=== PATIENT | male | born 1970 | race Caucasian/White ===

== ENCOUNTER 2023-03-06 18:29 | Inpatient (IN) | payer OTHER ==
[2023-03-06 19:55] VITALS: BMI 24.1
[2023-03-06] MEDS ORDERED: IBUPROFEN 600 MG TABLET (FP) PO PRN (23:57)
[2023-03-06] MEDS ORDERED: NALOXONE HCL 0.4 MG/ML VIAL IM PRN (23:57)
[2023-03-06] MEDS ORDERED: BISMUTH SUBSALICYLATE 524 MG/30 ML PO PRN (23:57)
[2023-03-06] MEDS ORDERED: POLYETHYLENE GLYCOL (HEALTHYLAX) 3350 17 GM PACKET PO PRN (23:57)
[2023-03-06] MEDS ORDERED: ACETAMINOPHEN 325 MG TABLET (FP) PO PRN (23:57)
[2023-03-06] MEDS ORDERED: LOPERAMIDE HCL 2 MG CAPSULE PO PRN (23:57)
[2023-03-06] MEDS ORDERED: MELATONIN 5 MG TABLETS PO PRN (23:57)
[2023-03-06] MEDS ORDERED: MAG HYDROX/AL HYDROX/SIMETH 30 ML UNIT-DOSE CUP PO PRN (23:57)
[2023-03-06] MEDS ORDERED: BENZOCAINE/MENTHOL (CHLORASEPTIC ) LOZENGE MM PRN (23:57)
[2023-03-06] MEDS ORDERED: P-EPHED 60MG/TRIPROLIDI 2.5MG TABLET PO PRN (23:57)
[2023-03-06] MEDS ORDERED: NALOXONE HCL (KLOXXADO) 8 MG SPRAY NS PRN (23:57)
[2023-03-06] MEDS ORDERED: IBUPROFEN 400 MG TABLET (FP) PO PRN (23:57)
[2023-03-06] MEDS ORDERED: hydrOXYzine PAMOATE 25 MG CAPSULE (FP) PO PRN (23:57)
[2023-03-06] MEDS ORDERED: ONDANSETRON *ODT* 4 MG TABLET SL PRN (23:57)
[2023-03-06] MEDS ORDERED: MAGNESIUM HYDROX 2400MG/30ML ORAL SUSPENSION 30 ML CUP PO PRN (23:57)
[2023-03-06] MEDS ORDERED: BENZONATATE 200 MG CAPSULE PO PRN (23:57)
[2023-03-06] MEDS ORDERED: NICOTINE POLACRILEX 2 MG GUM BUC PRN (23:57)
[2023-03-06] MEDS ORDERED: DICYCLOMINE HCL 10 MG CAPSULE PO PRN (23:57)
[2023-03-07] MEDS ORDERED: ALBUTEROL SO4 0.083% IH SOL 2.5 MG/3 ML VIAL.NEB. NEB PRN
[2023-03-07] MEDS ORDERED: diazePAM 5 MG TABLET PO PRN (00:02)
[2023-03-07] MEDS ORDERED: methaDONE HCL 10 MG TABLET PO SCH (09:30)
[2023-03-07] MEDS: guaiFENesin 600 MG TABLET.ER (FP) PO SCH ×2 (09:36→22:20)
[2023-03-07] MEDS: PRENATAL VITAMINS W/ FOLIC ACID TABLET (FP) PO SCH (09:38)
[2023-03-07] MEDS: APIXABAN 5 MG TABLET PO SCH ×2 (11:19→22:20)
[2023-03-07] MEDS: BUDESONIDE/FORMETEROL FUMARATE 160/4.5 mcg INHALER IH SCH ×2 (11:19→22:20)
[2023-03-07] MEDS: TIOTROPIUM BROMIDE 2.5 MCG (SPIRIVA) RESPIMAT INHALER IH SCH (11:19)
[2023-03-07] MEDS: diazePAM 5 MG TABLET PO SCH ×3 (11:20→22:20)
[2023-03-07] MEDS ORDERED: ALBUTEROL SO4 HFA INHALER IH ONE (11:27)
[2023-03-07] MEDS: ALBUTEROL SO4 HFA INHALER IH PRN (11:47)
[2023-03-07 11:58] LABS: POTASSIUM 5.1 mmol/L (3.5-5.1)
[2023-03-07 12:01] LABS: HEMATOCRIT 38.2 % (35.4-49); HEMOGLOBIN 12.2 GM/dL (11.7-16.9); MCH 28.8 pg (25.7-33.7); MCHC 31.9 g/dl (32.0-35.9); MEAN CELL VOLUME 90.1 fl (80-96); MEAN PLT VOLUME 10.4 fl (7.5-11.1); PLATELET COUNT 217 10^3/uL (134-434); RBC 4.24 M/mm3 (4.00-5.60); RDW 14.6 % (11.9-15.9); WHITE BLOOD COUNT 5.8 K/mm3 (4.0-10.0)
[2023-03-07 12:02] LABS: CALCIUM 8.9 mg/dL (8.5-10.1)
[2023-03-07 12:03] LABS: ALBUMIN 3.5 g/dl (3.4-5.0); BLOOD UREA NITROGEN 10.8 mg/dL (7-18)
[2023-03-07 12:09] LABS: TOT PROT 6.9 g/dl (6.4-8.2)
[2023-03-07 12:10] LABS: BILIRUBIN,TOTAL 0.3 mg/dL (0.2-1)
[2023-03-07] MEDS: QUEtiapine FUMARATE 100 MG TABLET (FP) PO SCH (22:20)
[2023-03-07] MEDS: THIAMINE HCL 100 MG TABLET (FP) PO SCH (22:21)
[2023-03-08] MEDS: diazePAM 5 MG TABLET PO SCH ×4 (05:18→22:17)
[2023-03-08] MEDS: APIXABAN 5 MG TABLET PO SCH ×2 (10:07→22:17)
[2023-03-08] MEDS: guaiFENesin 600 MG TABLET.ER (FP) PO SCH ×2 (10:07→22:17)
[2023-03-08] MEDS: PRENATAL VITAMINS W/ FOLIC ACID TABLET (FP) PO SCH (10:07)
[2023-03-08] MEDS: TIOTROPIUM BROMIDE 2.5 MCG (SPIRIVA) RESPIMAT INHALER IH SCH (10:08)
[2023-03-08] MEDS: BUDESONIDE/FORMETEROL FUMARATE 160/4.5 mcg INHALER IH SCH ×2 (10:08→22:16)
[2023-03-08] MEDS: diazePAM 5 MG TABLET PO PRN (15:07)
[2023-03-08] MEDS: ALBUTEROL SO4 HFA INHALER IH PRN ×2 (18:00→22:16)
[2023-03-08] MEDS: QUEtiapine FUMARATE 100 MG TABLET (FP) PO SCH (22:17)
[2023-03-08] MEDS: THIAMINE HCL 100 MG TABLET (FP) PO SCH (22:17)
[2023-03-09] MEDS: diazePAM 5 MG TABLET PO SCH ×3 (05:37→22:06)
[2023-03-09] MEDS: ALBUTEROL SO4 HFA INHALER IH PRN ×3 (05:43→22:07)
[2023-03-09] MEDS: TIOTROPIUM BROMIDE 2.5 MCG (SPIRIVA) RESPIMAT INHALER IH SCH (10:10)
[2023-03-09] MEDS: PRENATAL VITAMINS W/ FOLIC ACID TABLET (FP) PO SCH (10:10)
[2023-03-09] MEDS: BUDESONIDE/FORMETEROL FUMARATE 160/4.5 mcg INHALER IH SCH ×2 (10:10→22:07)
[2023-03-09] MEDS: APIXABAN 5 MG TABLET PO SCH ×2 (10:10→22:06)
[2023-03-09] MEDS: diazePAM 5 MG TABLET PO PRN ×2 (10:12→17:51)
[2023-03-09 17:42] VITALS: RESP 18
[2023-03-09] MEDS: QUEtiapine FUMARATE 100 MG TABLET (FP) PO SCH (22:06)
[2023-03-09] MEDS: THIAMINE HCL 100 MG TABLET (FP) PO SCH (22:06)
[2023-03-10] MEDS: diazePAM 5 MG TABLET PO SCH ×2 (05:00→17:19)
[2023-03-10] MEDS: ALBUTEROL SO4 HFA INHALER IH PRN ×2 (05:02→22:21)
[2023-03-10] MEDS: APIXABAN 5 MG TABLET PO SCH ×2 (10:14→22:20)
[2023-03-10] MEDS: PRENATAL VITAMINS W/ FOLIC ACID TABLET (FP) PO SCH (10:14)
[2023-03-10] MEDS: diazePAM 5 MG TABLET PO PRN (10:14)
[2023-03-10] MEDS: TIOTROPIUM BROMIDE 2.5 MCG (SPIRIVA) RESPIMAT INHALER IH SCH (10:15)
[2023-03-10] MEDS: BUDESONIDE/FORMETEROL FUMARATE 160/4.5 mcg INHALER IH SCH ×2 (10:15→22:20)
[2023-03-10] MEDS: QUEtiapine FUMARATE 100 MG TABLET (FP) PO SCH (22:20)
[2023-03-10] MEDS: THIAMINE HCL 100 MG TABLET (FP) PO SCH (22:20)
[2023-03-11] MEDS ORDERED: diazePAM 5 MG TABLET PO ONE (06:00)
[2023-03-11 09:07] VITALS: BP 96/54; PULSE 66; TEMP 98.7
[2023-03-11] MEDS: APIXABAN 5 MG TABLET PO SCH (09:47)
[2023-03-11] MEDS: PRENATAL VITAMINS W/ FOLIC ACID TABLET (FP) PO SCH (09:47)
[2023-03-11] MEDS: TIOTROPIUM BROMIDE 2.5 MCG (SPIRIVA) RESPIMAT INHALER IH SCH (09:47)
[2023-03-11] MEDS: BUDESONIDE/FORMETEROL FUMARATE 160/4.5 mcg INHALER IH SCH (09:47)
== END 2023-03-11 10:35 | disposition home or self-care (01) | DRG 773 ==
LOC: YASAS 18:29 → Y3N 03-07 00:05
PROVIDERS: ADMIT Allergy & Immunology; ATTEND Surgery
PROC: HZ2ZZZZ Detoxification Services for Substance Abuse Treatment (ICD-10-PCS; principal; 2023-03-07)
DX: F11.23 Opioid dependence with withdrawal (principal); F13.20 Sedative, hypnotic or anxiolytic dependence, uncomplicated; F17.210 Nicotine dependence, cigarettes, uncomplicated; F19.282 Other psychoactive substance dependence with psychoactive substance-induced sleep disorder; I10 Essential (primary) hypertension; G47.00 Insomnia, unspecified; J44.9 Chronic obstructive pulmonary disease, unspecified; Z86.19 Personal history of other infectious and parasitic diseases; Z86.718 Personal history of other venous thrombosis and embolism; Z79.01 Long term (current) use of anticoagulants
CPT/HCPCS: 36415; 71046-TC-FY; 80053; 85027; 86780; 87635; 87811; 94640; Q0162